=== PATIENT | male | born 1980 | race Two or more races ===

== ENCOUNTER 2016-09-19 05:12 | Emergency (ER) | payer SELFPAY ==
[~2016-09-19] VITALS: Ht 172.7 cm; Wt 72.6 kg
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
--- NOTE | 2016-09-19 05:32 | NUR ---
[employer] LEFT. DR. VALDIVIA IS AT THE BEDSIDE WITH SLOOP CAPTAIN.
[2016-09-19] MEDS ORDERED: ONDANSETRON HCL/PF 4 MG/2 ML VIAL ONE (05:48)
[2016-09-19] MEDS ORDERED: MORPHINE SULFATE INJ 2 MG/ML DISP.SYRIN ONE (05:48)
[2016-09-19 05:59] LABS: BASOPHILS % (AUTO) 0.3 % (0.0-2.0); EOSINOPHILS # (AUTO) 0.2 /CMM (0.0-0.7); EOSINOPHILS % (AUTO) 3.7 % (0.0-6.0); HEMATOCRIT 44 % (39-51); HEMOGLOBIN 15.2 g/dL (13.5-17.5); LYMPHOCYTES # (AUTO) 1.1 /CMM (0.8-4.8); MEAN CORPUSCULAR HEMOGLOBIN 32 PG (26.0-33.0); MEAN CORPUSCULAR HGB CONC 34 g/dl (31.0-36.0); MEAN CORPUSCULAR VOLUME 92 fL (80-96); MONOCYTES # (AUTO) 0.5 /CMM (0.1-1.30); MONOCYTES % (AUTO) 8.6 % (2.0-12.0); NEUTROPHILS # (AUTO) 4.5 /CMM (1.8-8.9); NEUTROPHILS % (AUTO) 70.4 % (43.0-81.0); PLATELET COUNT (AUTO) 191 /CMM (150-450); RED BLOOD CELL COUNT(AUTO) 4.84 MIL/uL (4.5-6.0); WHITE BLOOD COUNT (AUTO) 6.4 K/uL (4.3-11.0)
[2016-09-19] MEDS ORDERED: MORPHINE SULFATE INJ 2 MG/ML DISP.SYRIN IV ONE (06:00)
[2016-09-19] MEDS ORDERED: ONDANSETRON HCL/PF 4 MG/2 ML VIAL IVP ONE (06:00)
[2016-09-19 06:11] LABS: CALCIUM, SERUM 8.3 mg/dL (8.5-10.1); CREATININE 0.9 mg/dL (0.6-1.3); POTASSIUM 3.6 mmol/L (3.5-5.1)
[2016-09-19 06:12] LABS: INR 0.99 (0.87-1.13); PROTHROMBIN TIME 10.6 SECS (9.5-12.7)
[2016-09-19 06:19] LABS: ALBUMIN 3.8 g/dL (3.4-5.0); BILIRUBIN,DIRECT 0.2 mg/dL (0.0-0.2); BILIRUBIN,TOTAL 0.8 mg/dL (0.2-1.0); TOTAL PROTEIN, SERUM 6.9 g/dL (6.4-8.2)
--- NOTE | 2016-09-19 06:31 | NUR ---
REGLA AND JAZZY FROM RADIOLOGY AT THE BEDSIDE W/ MANAGER SPECIALTY. PT IS GOING TO CT VIA [facility].
[2016-09-19] MEDS ORDERED: IV NS 0.9% 250 ML IV ONE (06:32)
[2016-09-19] MEDS ORDERED: CT SWABBABLE VALVE TRANS SET 1 EA INFUS.SET MC ONE (06:32)
[2016-09-19] MEDS ORDERED: IOHEXOL-300 100 ML VIAL IV ONE (06:32)
--- NOTE | 2016-09-19 06:52 | NUR ---
PT RETURNED FROM CT.
--- NOTE | 2016-09-19 07:05 | NUR ---
PT APPEARS TO BE RESTING COMFORTABLY WITH NO S/S OF PAIN OR DISTRESS. PT STATED THAT HIS PAIN WAS "POQUITO". VSS
[2016-09-19 07:19] VITALS: BP 118/78
== END 2016-09-19 07:20 | disposition home or self-care (01) ==
LOC: ER 05:13
DX: S16.1XXA Strain of muscle, fascia and tendon at neck level, initial encounter (principal); S20.211A Contusion of right front wall of thorax, initial encounter; S30.1XXA Contusion of abdominal wall, initial encounter; R51 Headache; V49.49XA Driver injured in collision with other motor vehicles in traffic accident, initial encounter; Y93.89 Activity, other specified; Y92.89 Other specified places as the place of occurrence of the external cause; Y99.9 Unspecified external cause status
CPT/HCPCS: 36415; 70450; 71010; 72125; 74160; 80048; 80076; 85025; 85730; 96374; 96375; 99285; A4606; J2270; J2405; J7050; Q9967; Z7610